=== PATIENT | female | born 1950 ===

== ENCOUNTER 2017-07-20 02:00 | Emergency (ER) | payer OTHER, MEDICAID, SELFPAY ==
[2017-07-20] VITALS (8 sets, daily range): BP systolic 152–185; BP diastolic 75–88; PULSE 74–84; RESP 15–27; TEMP 36.7; O2SAT 96–100
--- NOTE | 2017-07-20 03:58 | DI.RAD.S_ITS ---
PROCEDURE: XR CHEST 2V INDICATIONS: syncope TECHNIQUE: 2 views of the chest were acquired. COMPARISON: None. FINDINGS: Chest is rotated to the right. Surgical changes and devices: None. Lungs and pleura: No pleural effusions or pneumothorax. Lungs are clear. Mediastinum: Mediastinal contours are normal. Heart size is normal. Bones and chest wall: No suspicious bony abnormalities. Soft tissues appear unremarkable. IMPRESSION: No evidence of aspiration. Dictated by: Zechariah Vazquez M.D. on 07/20/2017 at 8:01 Approved by: Zechariah Vazquez M.D. on 07/20/2017 at 8:02
--- NOTE | 2017-07-20 03:58 | DI.CT.S_ITS ---
PROCEDURE: CT HEAD/BRAIN WO CON INDICATIONS: syncope TECHNIQUE: Noncontrast 4.5 mm thick angled axial sections acquired from the foramen magnum to the vertex, with coronal and sagittal reformats. For radiation dose reduction, the following was used: automated exposure control, adjustment of mA and/or kV according to patient size. COMPARISON: None. 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 CSF spaces: Basal cisterns are patent. No extra-axial fluid collections. The ventricles are enlarged but symmetric in size and shape. Brain: No intracranial bleeds or masses. There is cerebral volume loss for age, with resultant ventricular prominence. The no appreciable cortical atrophy. There are minimal periventricular and deep white matter chronic small vessel ischemic changes. Chronic lacunar infarct right basal ganglia. There is intracranial internal carotid artery atherosclerosis. Skull and face: Calvarium and visualized facial bones appear intact, without suspicious lesions. Sinuses: Visualized sinuses show chronic left sphenoid sinusitis, otherwise sinuses and mastoids are clear. IMPRESSION: 1. Mild ventriculomegaly compatible with age related central atrophy. 2. Chronic lacunar infarct right basal ganglia/insula 3. No acute intracranial abnormality. 4. Chronic left sphenoidal sinusitis Findings are concordant with the preliminary report. Dictated by: Zechariah Vazquez M.D. on 07/20/2017 at 8:11 Approved by: Zechariah Vazquez M.D. on 07/20/2017 at 8:16
[2017-07-20 04:13] LABS: Add Manual Diff / Slide Review NO; Basophils Percent Auto 0.5 % (0-2); Eosinophils Percent Auto 0.5 % (2-4); Hematocrit 34.2 % (36-46); Hemoglobin 11.2 g/dL (12.0-16.0); Lymphocytes Percent Auto 28.8 % (25-40); Mean Corpuscular HGB Conc 32.8 % (30-36); Mean Corpuscular Hemoglobin 26.1 PG (26-34); Mean Corpuscular Volume 79.4 fL (80-100); Monocytes Percent Auto 5.3 % (3-14); Neutrophils Absolute Auto 6900 /uL (3000-5900); Neutrophils Percent Auto 64.9 % (50-75); Platelet Count 190 X10^3/uL (150-400); Red Cell Distribution Width 15.2 % (11.6-14.8); White Blood Cell Count 10.6 X10^3/uL (4.5-11.0)
[2017-07-20 04:37] LABS: D Dimer 270 ng/mL (<231)
[2017-07-20 04:40] LABS: Alanine Aminotransferase 29 IU/L (9-52); Albumin 4.4 g/dL (3.5-5.0); Albumin Globulin Ratio 1.2 (1.0-2.8); Alkaline Phosphatase 94 U/L (38-126); Aspartate Aminotransferase 23 IU/L (14-36); BUN Creatinine Ratio 22.9 (6-22); Bilirubin Total 0.5 mg/dL (0.2-1.3); Calcium 9.6 mg/dL (8.4-10.2); Estimated Glomerular Filt Rate > 60.0 mL/min (>60); Globulin 3.6 g/dL (1.7-4.1); Glucose 139 mg/dL (80-110); HEMOLYSIS < 15 (0-50); Potassium 3.6 mmol/L (3.4-5.1); Sodium 143 mmol/L (137-145)
[2017-07-20 04:47] LABS: Lipase 213 U/L (23-300)
[2017-07-20 04:55] LABS: Troponin I < 0.012 ng/mL (0.01-0.034)
--- NOTE | 2017-07-20 05:25 | DI.CT.S_ITS ---
PROCEDURE: CT ANGIO CHEST PE PROTOCOL INDICATIONS: syncope w/ elevated d-dimer TECHNIQUE: After the administration of intravenous contrast, 2 mm thick sections acquired from the pulmonary apices to the posterior costophrenic angles. 3-dimensional maximum intensity projection (MIP) coronal and sagittal reformats were then acquired through the thorax. For radiation dose reduction, the following was used: automated exposure control, adjustment of mA and/or kV according to patient size. COMPARISON: None. 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 Pulmonary arteries: Pulmonary arteries are normal in size, and demonstrate no intraluminal filling defects to suggest central pulmonary embolism. Lungs and pleura: Lungs are clear except for mild bilateral dependent atelectasis. No pleural effusions or pneumothorax. Central and peripheral airways are patent. Mediastinum: Heart size is normal, without pericardial effusion. No mediastinal or hilar adenopathy. Thoracic aorta is normal in caliber and enhancement. Esophagus is normal in caliber, without hiatal hernia. Bones and chest wall: No suspicious bony lesions. Ribs and thoracic spine appear intact throughout. Thyroid gland appears enlarged. No axillary or supraclavicular adenopathy. Abdomen: Visualized upper abdominal solid organs appear normal in the early arterial phase of enhancement. IMPRESSION: 1. Exam is negative for pulmonary embolic disease. 2. No acute cardiopulmonary abnormality. Bilateral dependent atelectasis. 3. Probable thyromegaly. Macrocalcification right lobe. Suggest thyroid ultrasound and clinical correlation. Findings are concordant with the preliminary report. Dictated by: Zechariah Vazquez M.D. on 07/20/2017 at 8:16 Approved by: Zechariah Vazquez M.D. on 07/20/2017 at 8:21
--- NOTE | 2017-07-20 07:26 | ED_ITS ---
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 Patient reports that every 6 months to 2 years over the last several years she will have similar episodes. These episodes will begin with a painless full sensation followed by either uncontrollable spontaneous emesis, urination, or defecation, during which she loses consciousness for 30 seconds to 1+ minutes. The patient has no apparent postictal phase. At times the patient may have a dark tunnel vision prodrome. Patient has no preceding chest pain, abdominal pain. The patient has not previously sought medical care for these episodes. Patient's witness episodes are with a flaccid loss of consciousness, and absence of purposeful movement, and no myoclonic jerking. Patient has HTN, HLD, DM II. * Denies chest pain, shortness of breath, double vision, neck pain, vertigo, headache, arm pain, arm paresthesias, arm numbness, or focal weakness or sensory at change now or the time of their event. * Denies a history of seizures. No incontinence today, denies post-syncope confusion. * History and management discussion was obtained with the aid of the language line diplomatic interpreter/translator. M/S/F/SocHx notable for: please see HPI; remainder reviewed with patient and in chart. ROS: Negative constitutional, eye, cardiovascular, pulmonary, GI, , MSK, skin , neurologic, psychiatric, endocrine unless noted in the HPI. Exam Gen: Pleasant, non-toxic appearing, resting comfortably. HEENT: NC, AT, PEERL, EOMI. Resp: Clear to auscultation bilaterally with a normal work of breathing and no accessory muscle usage. Card: Regular rate and rhythm with no murmurs rubs or gallops, extremities are warm and well perfused, no JVD. GI: Nontender to palpation throughout all quadrants, nondistended : Deferred MSK: No visible deformities, strength and tone WNL. Skin: Normal color with no visible lesions. Neuro: Gen AO x 3, no facial asymmetry, no gaze preference, no slurring of speech. Pupils equal and reactive, EOMI, no facial asymmetry, no nystagmus, phonation intact, SCM 5/5 bilaterally. Cerebellar: bilateral upper extremities without dysmetria. Psych: Mood and affect appropriate. Labs / Imaging (pertinent): WBC 10.6, HB 11.2, d-dimer 270, sodium 143, potassium 3.6, troponin less than 0.012, total bilirubin 0.5, AST 23, ALT 29, ALP 94, lipase 213. EKG: SR at [address]-segment elevations or depressions, T-wave inversions or new LBBB. [place] interval 248 msec, QTc 404 msec, no delta waves, epsilon waves, coved or saddle ST-segment changes in leads V1-3, preseptal or inferior lead Q-waves, biphasic P-waves, or T-wave inversions; no LVH. CXR: No acute cardiopulmonary disease process. No focal infiltrate, cardiomegaly , rib fractures, or mediastinal widening, lung markings extend to the periphery bilaterally and there are no deep sulci. Radiologist's read pending. CT Head: no acute intracranial abnormality. Radiologist read pending. CTA chest: no PE. No other acute abnormality. MDM Previous chart, nursing note, and vitals reviewed. A: 66-year-old female with HTN, HLD, DM II presents for following a sudden LOC preceded by emesis, patient notes a history of recurrent episodes of sudden uncontrollable incontinence of urine or stool or uncontrolled emesis followed by LOC marked by motor flaccidity for 30 seconds to 1+ minutes; variable possible prodromal symptoms. DDx and evaluation: * Anemia - Hemoglobin clinically within normal limits. * Cardiac - EKG labs and history without evidence of ACS, AV-block, WPW syndrome, Brugada syndrome, HCM, Long or Short QT-syndrome, or arrhythmogenic RV dysplasia. Heart sounds WNL on exam, no evidence of valvular abnormalities by history or auscultation. * Obstructive - Doubt PE, tamponade, or pulmonary hypertension based upon lack of shortness of breath, chest pain, or historical risk factors as well as negative imaging. * Vascular - As there are no identifiable risk factors on history (injury risk factors, vertiginous symptoms, diplopia, vision changes, TIA risk factors or prior similar events) further evaluation of a possible vertebrobasilar insufficiency. Furthermore, as the patient denies neck pain, recent neck trauma , and there is no evidence of a partial Ramona's syndrome, a carotid or vertebral dissection is felt to be unlikely and imaging is not indicated. Similarly, the absence of focal arm symptoms and symmetric perfusion of the upper extremities effectively excludes emergent evaluation of any possible subclavian steal syndrome. Lastly, given the absence of chest pain aortic dissection further evaluation of any possible dissection is not warranted. * Electrolyte - Electrolytes clinically within normal limits. * Hypotension (hypovolemia vs vasovagal vs autonomic instability) - patient with an atypical history given her incontinence at the onset of symptoms, however this is not fully excluded. * GROOMING ASSISTANT (CVA/TIA/Mass) - no evidence by imaging. * Seizure - concern exists for seizure, however patient also has an atypical history. * AAA - patient without any abdominal, groin, back or flank pain on history or exam, as such no further evaluation of this possible etiology is currently indicated. ED Course: no clinically appreciable changes. Discussion was had with the patient regarding management options. Given the duration of symptoms, patient wishes to have ongoing evaluation by her PCP versus inpatient care. Disposition: patient care transfer to the daytime provider pending imaging results. Anticipate discharge with PCP follow-up. This was communicated with the patient. Impression: syncope, emesis (please reference below for remainder of encounter information) Related Data Allergies Allergy/AdvReac Type Severity Reaction Status Date / Time No Known Drug Allergies Allergy Verified 07/20/17 02:25 Exam Initial Vital Signs Initial Vital Signs: Vital Signs Temperature 98.1 F 07/20/17 02:21 Pulse Rate 83 07/20/17 02:21 Respiratory Rate 15 07/20/17 02:21 Blood Pressure 185/75 H 07/20/17 02:21 Pulse Oximetry 99 07/20/17 02:21 Course Orders Ordered: ED Orders 07/20/17 EKG-12 Lead Stat 07/20/17 03:58 CT head/brain wo con Stat XR chest 2V Stat Complete Blood Count AUTO DIFF Stat Comprehensive Metabolic Panel Stat Lipase Stat Troponin I Stat 07/20/17 04:22 D Dimer Stat 07/20/17 05:25 CT angio chest PE protocol Stat Vital Signs - 8 hr 07/20/17 02:21 07/20/17 02:23 07/20/17 03:06 Temperature 98.1 F Pulse Rate 83 84 83 Respiratory Rate 15 20 16 Blood Pressure 185/75 H Blood Pressure [Left Arm] 185/78 H 181/86 H Pulse Oximetry 99 96 100 07/20/17 05:38 07/20/17 06:23 07/20/17 06:41 Temperature Pulse Rate 81 78 76 Respiratory Rate 17 16 15 Blood Pressure Blood Pressure [Left Arm] 169/80 H 180/83 H 183/88 H Pulse Oximetry 100 100 100 07/20/17 07:10 Temperature Pulse Rate 74 Respiratory Rate 27 H Blood Pressure Blood Pressure [Left Arm] 152/79 H Pulse Oximetry 99 Medical Decision Making Lab Data Result diagrams: 07/20/17 03:58 07/20/17 03:58 Lab Results 07/20/17 07/20/17 07/20/17 Range/Units 03:58 03:58 04:22 WBC 10.6 (4.5-11.0) X10^3/uL RBC 4.30 (4.0-5.2) X10^6/uL Hgb 11.2 L (12.0-16.0) g/dL Hct 34.2 L (36-46) % MCV 79.4 L (80-100) fL MCH 26.1 (26-34) PG MCHC 32.8 (30-36) % RDW 15.2 H (11.6-14.8) % Plt Count 190 (150-400) X10^3/uL Neut % (Auto) 64.9 (50-75) % Lymph % (Auto) 28.8 (25-40) % [place] % (Auto) 5.3 (3-14) % Eos % (Auto) 0.5 L (2-4) % Baso % (Auto) 0.5 (0-2) % Neut # (Auto) 6900 H (3212-6334) /uL D-Dimer 270 H (<231) ng/mL Sodium 143 (137-145) mmol/L Potassium 3.6 (3.4-5.1) mmol/L Chloride 104.0 (98-107) mmol/L Carbon Dioxide 24.0 (22-32) mmol/L BUN 16.0 (7-17) mg/dL Creatinine 0.70 (0.52-1.04) mg/dL Estimated GFR > 60.0 (>60) mL/min BUN/Creatinine Ratio 22.9 H (6-22) Glucose 139 H (80-110) mg/dL Calcium 9.6 (8.4-10.2) mg/dL Total Bilirubin 0.5 (0.2-1.3) mg/dL AST 23 (14-36) IU/L ALT 29 (9-52) IU/L Alkaline Phosphatase 94 (38-126) U/L Troponin I < 0.012 (0.01-0.034) ng/mL Total Protein 8.0 (6.3-8.2) g/dL Albumin 4.4 (3.5-5.0) g/dL Globulin 3.6 (1.7-4.1) g/dL Albumin/Globulin Ratio 1.2 (1.0-2.8) Lipase 213 (23-300) U/L
== END 2017-07-20 08:45 | disposition home or self-care (01) ==
PROVIDERS: Emergency Provider Emergency Medicine
DX: R55 Syncope and collapse (principal); R11.10 Vomiting, unspecified
CPT/HCPCS: 70450; 71046; 71275; 80053; 83690; 84484; 85025; 85379; 93005; 99284; 99285; Q9967